=== PATIENT | male | born 1945 | race Caucasian/White ===

== ENCOUNTER 2022-04-14 09:40 | Outpatient (CLI) | payer MEDICARE, OTHER ==
[2022-04-14 11:51] LABS: Mean Corpuscular HGB CONC 34.7 g/dL (32.0-36.0); Mean Corpuscular Volume 89.4 fl (81.2-95.1); Mean Platelet Volume 10.1 fl (7.4-10.4); Platelet Count 233 10x3/uL (150-450); RBC Distribution Width 13.1 % (11.5-14.5); Red Blood Cell (RBC) Count 4.52 10x6/uL (4.32-5.72); White Blood Cell (WBC) Count 7.3 10x3/uL (3.5-10.5)
[2022-04-14 12:10] LABS: Anion Gap 14 mmol/L (10-20); BUN (Urea Nitrogen) 17 mg/dL (8.4-25.7); Calc. Creatinine Clearance 0 mL/min (70-130); Calcium 9.7 mg/dL (7.8-10.44); Carbon Dioxide 26 mmol/L (23-31); Chloride 108 mmol/L (98-107); Estimated GFR 85; Glucose 94 mg/dL (83-110); Potassium 4.7 mmol/L (3.5-5.1); Sodium 143 mmol/L (136-145)
== END 2022-04-14 09:41 | disposition home or self-care (01) ==
LOC: CSHLAB 09:40
PROVIDERS: ATTEND Otolaryngology Plastic Surgery within the Head & Neck
DX: Z01.812 Encounter for preprocedural laboratory examination (principal); Z20.822 Contact with and (suspected) exposure to COVID-19
CPT/HCPCS: 80048; 87811

== ENCOUNTER 2022-04-18 06:34 | Day surgery (SDC) | payer MEDICARE ==
[2022-04-14 14:31] VITALS: BMI 25.8
[2022-04-18] MEDS ORDERED: Lidocaine 1% (PF) 30 ML VIAL ONE (10:08)
[2022-04-18] MEDS ORDERED: EPINEPHrine 1 MG/ML AMP ONE (10:08)
[2022-04-18] MEDS ORDERED: Mupirocin 2% Ointment 22 GM Tube ONE (10:09)
[2022-04-18] MEDS ORDERED: Neomycin-Polymyxin 1 ML AMP ONE (10:09)
[2022-04-18] MEDS ORDERED: PROPOFOL 20 ML ONE (10:10)
[2022-04-18] MEDS ORDERED: Midazolam HCl 2 mg/2 ml Vial ONE (10:10)
[2022-04-18] MEDS ORDERED: Fentanyl 100 MCG/2 ML VIAL ONE (10:10)
[2022-04-18] MEDS ORDERED: Ondansetron PF 4 MG/2 ML Vial ONE (10:11)
[2022-04-18] MEDS ORDERED: Lidocaine 2% PF 5 ML VIAL ONE (10:11)
[2022-04-18] MEDS ORDERED: Dexamethasone 20 MG/5 ML VIAL ONE (10:11)
[2022-04-18] MEDS ORDERED: CEFAZOLIN 1 GM VIAL ONE (10:15)
[2022-04-18] MEDS ORDERED: Glycopyrrolate 0.2 MG/ML 5 ML SYRINGE ONE (10:26)
[2022-04-18] MEDS ORDERED: ePHEDrine Sulfate 50 MG/10 ML VIAL ONE (10:35)
[2022-04-18] MEDS ORDERED: Lidocaine 1% w/Epinephrine 1:100K 20 ML VIAL ONE (10:42)
== END 2022-04-18 12:50 | disposition home or self-care (01) ==
LOC: CSHSDC 06:34
PROVIDERS: ATTEND Otolaryngology Plastic Surgery within the Head & Neck
PROC: 09B37ZZ Excision of Right External Auditory Canal, Via Natural or Artificial Opening (ICD-10-PCS; principal; 2022-04-18)
DX: H61.891 Other specified disorders of right external ear (principal); H60.01 Abscess of right external ear; Q18.1 Preauricular sinus and cyst; H90.3 Sensorineural hearing loss, bilateral; H69.83 Other specified disorders of Eustachian tube, bilateral; H60.501 Unspecified acute noninfective otitis externa, right ear; H61.21 Impacted cerumen, right ear; N49.1 Inflammatory disorders of spermatic cord, tunica vaginalis and vas deferens; I10 Essential (primary) hypertension; I25.10 Atherosclerotic heart disease of native coronary artery without angina pectoris; J45.909 Unspecified asthma, uncomplicated; Z79.82 Long term (current) use of aspirin; Z79.2 Long term (current) use of antibiotics; Z79.899 Other long term (current) drug therapy; Z95.1 Presence of aortocoronary bypass graft; Z98.890 Other specified postprocedural states
CPT/HCPCS: 69145; C1713; 88304; J0171; J0690; J1100; J2001; J2250; J2405; J2704; J3010